=== PATIENT | female | born 1970 | race Caucasian/White ===

== ENCOUNTER → 2021-06-03 08:41 | Outpatient (CLI) | payer BC, SELFPAY ==
--- NOTE | 2021-06-03 08:42 | DI.RAD.S_ITS ---
PROCEDURE: XR SHOULDER LT MIN 2V INDICATIONS: L distal clavicle, L shoulder pain - direct shoulder trauma TECHNIQUE: 3 views of the shoulder were acquired. COMPARISON: None. FINDINGS: Bones: Acute comminuted fracture involving distal clavicle approximately 1.5 cm from left acromioclavicular joint with up to 1.1 cm depression of the distal clavicle. No dislocation. No suspicious bony lesions. Visualized ribs appear intact. Soft tissues: No suspicious soft tissue calcifications. IMPRESSION: Acute comminuted and depressed distal left clavicular shaft fracture as above. Dictated by: Elian Baumann M.D. on 06/03/2021 at 9:07 Approved by: Elian Baumann M.D. on 06/03/2021 at 9:08
== END ==
PROVIDERS: PCP Family Medicine; Referring Provider Physician Assistant; Visit Provider Physician Assistant
DX: S42.032A Displaced fracture of lateral end of left clavicle, initial encounter for closed fracture (principal)
CPT/HCPCS: 73030